=== PATIENT | female | born 1955 | race Caucasian/White ===

== ENCOUNTER 2020-01-14 06:47 | Outpatient (NON) | payer BC, SELFPAY ==
[2020-01-15 13:10] LABS: SARS-CoV-2 RNA PCR Negative
== END 2020-01-14 06:48 ==
PROVIDERS: PCP Registered Nurse; Visit Provider Registered Nurse
DX: Z20.828 Contact with and (suspected) exposure to other viral communicable diseases (principal); R05 Cough; J34.89 Other specified disorders of nose and nasal sinuses
CPT/HCPCS: 87635; C9803; U0003

== ENCOUNTER 2020-10-17 12:31 | Outpatient (CLI) | payer BC, SELFPAY ==
[2020-10-17 14:09] LABS: Hematocrit 42.6 % (37.0-47.0); Hemoglobin 14.5 g/dL (12.0-15.0); Mean Corpuscular Volume 91.2 fl (80-100); Mean Platelet Volume 10.2 fl (7.4-10.4); Platelet Count Result 215 k/mm3 (150-375); Red Blood Count 4.67 M/mm3 (4.2-5.4); Red Cell Distribution Width 12.4 % (11.5-14.5); White Blood Count 6.2 K/mm3 (4.5-10.0)
[2020-10-17 14:55] LABS: Erythrocyte Sedimentation Rate 14 mm/hr (0-20)
[2020-10-17 14:58] LABS: Free T4 Free Thyroxine 0.72 ng/mL (0.78-2.19)
[2020-10-17 15:07] LABS: Hepatitis B Surface Antigen Negative (Negative)
[2020-10-17 15:25] LABS: Alanine Aminotransferase 22 U/L (4-35); Albumin Level 4.7 g/dL (3.5-5.1); Alkaline Phosphatase 76 U/L (38-126); Anion Gap 6 mmol/L (8-16); Aspartate Amino Transferase 24 U/L (14-36); Bilirubin,Total 0.9 mg/dL (0.2-1.3); Blood Urea Nitrogen 19 mg/dL (7-17); CRP < 0.5 mg/dL (<1.0); Carbon Dioxide 27 mmol/L (22-30); Chloride 106 mmol/L (98-107); Creatine Kinase 23 U/L (30-135); Estimated Glomerular Filt Rate > 60; Glucose 87 mg/dL (65-110); Magnesium 1.8 mg/dL (1.6-2.3); Potassium 4.2 mmol/L (3.4-5.0); Sodium 139 mmol/L (137-145)
[2020-10-17 15:26] LABS: Rheumatoid Factor < 8.6 IU/ML (<12)
[2020-10-17 15:30] LABS: HIV 1/2 Ab P24 Ag Result Negative (Negative); Hepatitis B Surface Anti Res Positive; Hepatitis C Virus Antibody Negative (Negative)
[2020-10-17 16:06] LABS: Hemoglobin A1C 5.3 % (<5.7)
[2020-10-17 16:29] LABS: Folic Acid 8.8 ng/mL (2.76->20); Vitamin B12 > 1000.0 pg/mL (239-931)
[2020-10-19 20:10] LABS: SS-A <1.0; SS-B <1.0
[2020-10-20 10:23] LABS: Vitamin B1 11 nmol/L (8-30)
[2020-10-20 11:19] LABS: Vitamin B6 10.7 ng/mL (2.1-21.7)
[2020-10-20 14:09] LABS: Hepatitis B Core Ab Total Nonreactive (Nonreactive)
[2020-10-20 20:30] LABS: Hepatitis B DNA PCR <1.00 Log IU/mL; Hepatitis B DNA PCR <10 IU/mL
[2020-10-21 22:31] LABS: NIL 0.04 IU/mL; Quantiferon TB Plus, 1T NEGATIVE (NEGATIVE); TB1-NIL <0.00 IU/mL; TB2-NIL <0.00 IU/mL
[2020-10-22 03:15] LABS: Creatinine, Random Urine 202 mg/dL (20-275); Total Protein/Creatinine Ratio 69 mg/g creat (21-161)
[2020-10-22 19:26] LABS: Hepatitis C RNA, Quant PCR <15 IU/mL
[2020-10-22 22:06] LABS: Albumin 4.7 g/dL (3.8-4.8); Alpha 1 Globulin 0.3 g/dL (0.2-0.3); Alpha 2 Globulin 0.7 g/dL (0.5-0.9); Beta 1 Globulin 0.4 g/dL (0.4-0.6); Gamma Globulin 0.8 g/dL (0.8-1.7)
[2020-10-31 12:29] LABS: Reference Lab Test Name 14-3-3 eta Protein
== END 2020-10-17 12:32 | disposition home or self-care (01) ==
LOC: ANHLAB 12:41
PROVIDERS: PCP Registered Nurse; Visit Provider Internal Medicine Rheumatology
DX: M19.90 Unspecified osteoarthritis, unspecified site (principal); M35.00 Sjogren syndrome, unspecified; G62.9 Polyneuropathy, unspecified; R53.83 Other fatigue; E83.42 Hypomagnesemia; R73.09 Other abnormal glucose; E55.9 Vitamin D deficiency, unspecified; E53.8 Deficiency of other specified B group vitamins; D50.9 Iron deficiency anemia, unspecified
CPT/HCPCS: 36415; 80053; 82306; 82550; 82570; 82607; 82728; 82746; 83036; 83520; 83735; 84155; 84156; 84165; 84166; 84207; 84425; 84439; 84443; 84550; 85027; 85652; 86038; 86140; 86235; 86334; 86430; 86480; 86703; 86704; 86706; 86803; 87340; 87517; 87522; G0432

== ENCOUNTER 2020-10-19 11:41 | Outpatient (CLI) | payer BC, SELFPAY | END 2020-10-19 11:42 | disposition home or self-care (01) | LOC: ANHLAB 11:45 | PROVIDERS: PCP Registered Nurse; Visit Provider Internal Medicine Rheumatology | DX: G62.9 Polyneuropathy, unspecified (principal); R53.83 Other fatigue; M19.90 Unspecified osteoarthritis, unspecified site; E83.42 Hypomagnesemia; M79.10 Myalgia, unspecified site; Z13.1 Encounter for screening for diabetes mellitus | CPT/HCPCS: 86335 ==

== ENCOUNTER 2021-01-25 18:04 | Outpatient (CLI) | payer BC, SELFPAY ==
--- NOTE | ~2021-01-25 | XR_ITS ---
EXAMINATION: XR hand BI arthritis min 3V EXAM DATE: 01/25/2021 18:55 INDICATION: Multijoint pain. TECHNIQUE: Right hand frontal, lateral and oblique projections obtained and reviewed. Left hand fron kana, lateral and oblique projections obtained and reviewed. Catchers projection of both hands. There is no prior study for comparison. FINDINGS: Wrist findings reported on dedicated exams same date. Right hand: There is mild polyarticular distal interphalangeal primary osteoarthritis. There are no bony erosions identified. There are no acute fractures identified. Left hand: There is mild 1st interphalangeal, polyarticular distal interphalangeal primary osteoarthr itis. There are no bony erosions identified. There are no acute fractures identified. IMPRESSION: 1. Mild polyarticular osteoarthritis. Reviewed, dictated and finalized at location A. DATION MAKER
--- NOTE | ~2021-01-25 | XR_ITS ---
EXAMINATION: XR shoulder LT min 2V EXAM DATE: 01/25/2021 18:55 INDICATION: Multiple joint pain. TECHNIQUE: Left shoulder frontal, axillary projections. Correlation is made to contralateral shoulde r same date. FINDINGS: There is mild glenohumeral joint, mild acromioclavicular joint primary osteoarthritis. Ther e are no acute fractures or dislocations identified. There is no subcutaneous gas. The soft tissue is unremarkable. There are no radiopaque foreign bodies. IMPRESSION: Mild left shoulder osteoarthritis. Reviewed, dictated and finalized at location A. NING STILL OPERATOR
--- NOTE | ~2021-01-25 | XR_ITS ---
EXAMINATION: XR elbow LT 2V EXAM DATE: 01/25/2021 18:55 INDICATION: Multiple Joint Pain. TECHNIQUE: Frontal and lateral projections of the left elbow. Correlation is made to contralateral e lbow same date. FINDINGS: There is mild left elbow primary osteoarthritis. There are no acute fractures or dislocatio ns identified. There is no subcutaneous gas. The soft tissue is unremarkable. There are no radiop aque foreign bodies. IMPRESSION: Mild left elbow osteoarthritis. Reviewed, dictated and finalized at location A. EILLANCE SYSTEM MONITOR
--- NOTE | ~2021-01-25 | XR_ITS ---
EXAMINATION: XR shoulder RT min 2V EXAM DATE: 01/25/2021 18:55 INDICATION: Multiple Joint Pain TECHNIQUE: Right shoulder frontal, axillary projections.There is no prior study for comparison. FINDINGS: There is mild glenohumeral joint, mild acromioclavicular joint primary osteoarthritis. Ther e are no acute fractures or dislocations identified. There is no subcutaneous gas. The soft tissue is unremarkable. There are no radiopaque foreign bodies. IMPRESSION: Mild right shoulder osteoarthritis. Reviewed, dictated and finalized at location A. MACHINE OPERATOR
--- NOTE | ~2021-01-25 | XR_ITS ---
EXAMINATION: XR wrist RT 2V EXAM DATE: 01/25/2021 18:55 INDICATION: Multiple joint pain. TECHNIQUE: Frontal and lateral projections of the right wrist. Correlation is made to contralateral wrist same date. FINDINGS: There is right radial distal metaphyseal volar plate, supporting screws. The fracture this was healing has healed. There is an old ulnar styloid avulsion fracture. There is severe triscaphe a nd 1st carpometacarpal joint primary osteoarthritis. There are no bony erosions identified. There ar e no acute fractures identified. The soft tissue is unremarkable. IMPRESSION: Advanced right triscaphe, 1st carpometacarpal osteoarthritis. Reviewed, dictated and finalized at location A. ORATE LEGAL INTERN
--- NOTE | ~2021-01-25 | XR_ITS ---
EXAMINATION: XR ankle RT 2V EXAM DATE: 01/25/2021 18:55 INDICATION: Multiple Joint Pain . TECHNIQUE: Frontal and lateral projections of the right ankle. There is no prior study for comparis on. FINDINGS: Unremarkable ankle joint and mortise. There are no acute fractures or dislocations identif ied. There is no subcutaneous gas. The soft tissue is unremarkable. There are no radiopaque forei gn bodies. IMPRESSION: 1. Unremarkable XR ankle RT 2V exam. Reviewed, dictated and finalized at location A. CAL DIAGNOSTIC RADIOGRAPHER
--- NOTE | ~2021-01-25 | XR_ITS ---
EXAMINATION: XR hip BI wo pelvis EXAM DATE: 01/25/2021 18:55 INDICATION: Multiple joint pain. TECHNIQUE: Each hip imaged independently (separate right and also left hip) 'frog leg' and frontal p rojections for interpretation. There is no prior study for comparison. FINDINGS: No radiographic evidence of hip avascular necrosis. There is mild symmetric bilateral hip primary osteoarthritis. There are no acute fractures or dislocations identified. There is no subcut aneous gas. The soft tissue is unremarkable. There are no radiopaque foreign bodies. Advanced L4- 5 disc disease. IMPRESSION: Mild symmetric bilateral hip osteoarthritis. Reviewed, dictated and finalized at location A. ET CONSULTANT
--- NOTE | ~2021-01-25 | XR_ITS ---
EXAMINATION: XR knee RT 2V EXAM DATE: 01/25/2021 18:55 INDICATION: Multiple Joint Pain . TECHNIQUE: Frontal and lateral projections of the right knee. There is no prior study for compariso n. FINDINGS: Small right suprapatellar enthesopathy. Minimal patellofemoral and medial tibial femoral c ompartment primary osteoarthritis. There are no acute fractures or dislocations identified. There is no subcutaneous gas. The soft tissue is unremarkable. There are no radiopaque foreign bodies. IMPRESSION: Minimal right knee degenerative changes. Reviewed, dictated and finalized at location A. GRINDER FEEDER
--- NOTE | ~2021-01-25 | XR_ITS ---
EXAMINATION: XR ankle LT 2V EXAM DATE: 01/25/2021 18:55 INDICATION: Multijoint pain. TECHNIQUE: Frontal and lateral projections of the left ankle. There is no prior study for compariso n. FINDINGS: Unremarkable left ankle joint, mortise. There are no acute fractures or dislocations ident ified. There is no subcutaneous gas. The soft tissue is unremarkable. There are no radiopaque for eign bodies. IMPRESSION: 1. Unremarkable XR ankle LT 2V exam. Reviewed, dictated and finalized at location A. INE STONE POLISHER
--- NOTE | ~2021-01-25 | XR_ITS ---
EXAMINATION: XR elbow RT 2V EXAM DATE: 01/25/2021 18:55 INDICATION: Multiple Joint Pain . TECHNIQUE: Frontal and lateral projections of the right elbow. There is no prior study for comparis on. FINDINGS: There is mild right elbow primary osteoarthritis. There are no acute fractures or dislocati ons identified. There is no subcutaneous gas. The soft tissue is unremarkable. There are no radio paque foreign bodies. IMPRESSION: Mild right elbow osteoarthritis. Reviewed, dictated and finalized at location A. UET SERVER
--- NOTE | ~2021-01-25 | XR_ITS ---
EXAMINATION: XR knee LT 2V EXAM DATE: 01/25/2021 18:55 INDICATION: Multiple Joint Pain TECHNIQUE: Frontal and lateral projections of the left knee There is no prior study for comparison . FINDINGS: There are no acute left knee fractures or dislocations identified. There is no subcutaneou s gas. The soft tissue is unremarkable. There are no radiopaque foreign bodies. No joint effusion . IMPRESSION: 1. Unremarkable XR knee LT 2V exam. Reviewed, dictated and finalized at location A. ICAL RESEARCH TECHNICIAN
--- NOTE | ~2021-01-25 | XR_ITS ---
EXAMINATION: XR wrist LT 2V EXAM DATE: 01/25/2021 18:55 INDICATION: Multiple Joint Pain. TECHNIQUE: Frontal and lateral projections of the left wrist. There is no prior study for compariso n. FINDINGS: There is moderate to severe left 1st carpometacarpal joint, moderate triscaphe joint prima ry osteoarthritis. There are no bony erosions identified. There are no acute fractures or dislocation s identified. There is no subcutaneous gas. The soft tissue is unremarkable. There are no radiopa que foreign bodies. IMPRESSION: Left triscaphe, 1st carpometacarpal osteoarthritis. Reviewed, dictated and finalized at location A. WRITER
== END 2021-01-25 18:05 | disposition home or self-care (01) ==
LOC: ANHIMG 18:07
PROVIDERS: PCP Registered Nurse; Visit Provider Internal Medicine Rheumatology
DX: M19.021 Primary osteoarthritis, right elbow (principal); M19.022 Primary osteoarthritis, left elbow; M16.0 Bilateral primary osteoarthritis of hip; M19.011 Primary osteoarthritis, right shoulder; M19.012 Primary osteoarthritis, left shoulder; M17.11 Unilateral primary osteoarthritis, right knee; M19.041 Primary osteoarthritis, right hand; M19.042 Primary osteoarthritis, left hand; M19.031 Primary osteoarthritis, right wrist; M19.032 Primary osteoarthritis, left wrist
CPT/HCPCS: 73030; 73070; 73100; 73130; 73521; 73560; 73600

== ENCOUNTER 2021-03-22 14:44 | Outpatient (RCR) | payer BC, SELFPAY ==
[2021-03-22] MEDS: FAMOTIDINE 20 MG TABLET PO (15:16)
[2021-03-22] MEDS: diphenhydrAMINE HCl CAP 25 MG CAPSULE PO (15:16)
[2021-03-22] MEDS: ACETAMINOPHEN 325 MG TABLET 650 MG PO (15:16)
[2021-03-22 15:19] VITALS: BP 129/84; PULSE 71; RESP 20; TEMP 36.6; O2SAT 99
[2021-03-22 16:20] VITALS: BP 126/84
== END 2021-03-22 17:00 ==
LOC: AMCINF 14:44
PROVIDERS: PCP Registered Nurse; Visit Provider Internal Medicine Hematology & Oncology
DX: U07.1 COVID-19 (principal); G61.81 Chronic inflammatory demyelinating polyneuritis
CPT/HCPCS: A9270; M0243; Q0244

== ENCOUNTER → 2022-10-16 13:46 | Outpatient (CLI) | payer OTHER, SELFPAY ==
--- NOTE | ~2022-10-16 | MM_ITS ---
EXAMINATION: MM scrn eunice implant BI w mohan HISTORY: Screening mammogram TECHNIQUE: Craniocaudal and mediolateral oblique 3-D tomosynthesis images with implant displacement a nd synthetic 2-D images were generated. Craniocaudal and mediolateral oblique views of the breasts wi thout implant displacement were obtained using full field digital mammography. CAD analysis was submi tted and interpreted. COMPARISON: No prior mammogram is available for comparison at this institution. BREAST PARENCHYMAL COMPOSITION: There are scattered areas of fibroglandular density. FINDINGS: 2 biopsy markers are noted on the right; history of 2 prior benign right breast biopsies. Status post bilateral augmentation mammoplasty. There are asymmetric opacities in the central left breast 4 cm deep to the nipple on craniocaudal vie w and posterior lower left breast on MLO view. Otherwise there is no evidence of suspicious mass, calcification, or architectural distortion to sugg est malignancy in either breast. There has been no other suspicious interval change. IMPRESSION: 1. Left breast mammographic asymmetric densities 2. Diagnostic left mammogram and left breast ultrasound examination are recommended BI-RADS Category 0: Incomplete: Needs additional imaging evaluation. Reviewed, dictated and finalized at location A. IMPRESSION: 1. Left breast mammographic asymmetric densities 2. Diagnostic left mammogram and left breast ultrasound examination are recomme nded BI-RADS Category 0: Incomplete: Needs additional imaging evaluation.
== END ==
PROVIDERS: PCP Registered Nurse; Visit Provider Nurse Practitioner Obstetrics & Gynecology
DX: Z12.31 Encounter for screening mammogram for malignant neoplasm of breast (principal); N64.89 Other specified disorders of breast
CPT/HCPCS: 77063; 77067

== ENCOUNTER → 2022-11-19 09:50 | Outpatient (CLI) | payer OTHER, SELFPAY ==
--- NOTE | ~2022-11-19 | MMUS_ITS ---
EXAMINATION: MM diag eunice implant LT w mohan, US breast LT complete HISTORY: Left breast mammographic asymmetric density reported on 10/17/1999 2020 screening mammogram TECHNIQUE: Additional 3-D tomosynthesis images of the left breast were performed and synthetic 2-D im ages were generated. CAD analysis was submitted and interpreted. High resolution complete left breast ultrasound examination including all 4 quadrants and subareolar area was performed. COMPARISON: 11/02/2022 bilateral implant screening mammogram FINDINGS: MAMMOGRAPHIC FINDINGS: No suspicious mass, architectural distortion, malignant calcification, skin thickening or retraction of the left breast is detected. Status post left augmentation mammoplasty. ULTRASOUND: No suspicious mass or shadowing or vascularity is detected. 2.2 x 6.8 x 5.4 mm cyst is noted of 4:00 subareolar area. Mildly prominent subareolar ducts are noted . IMPRESSION: 1. Benign findings; no evidence of malignancy 2. Routine annual mammographic screening is recommended BI-RADS Category 2: Benign finding(s). Reviewed, dictated and finalized at location A. IMPRESSION: 1. Benign findings; no evidence of malignancy 2. Routine annual mammographic screening is recommended BI-RADS Category 2: Benign finding(s).
--- NOTE | ~2022-11-19 | DEXA_ITS ---
Bone Density Report Name: MELVA DE LA O Age: 67 Sex: Female Ethnicity: White Date of : 1955 Indication: postmenopausal; screening for osteoporosis; height loss; history of glucocorticoids; prior fracture; rheumatoid arthritis; Referring Provider: Deirdre, Radha Study: Bone densitometry was performed. Exam Date: November 19, 2022 Accession number: [id number] Bone Density: Region BMD T-score Z-score Classification AP Spine (L1, L2, L3) 0.849 -1.5 0.3 Osteopenia Femoral Neck (Left) 0.695 -1.4 0.2 Osteopenia Total Hip (Left) 0.724 -1.8 -0.5 Osteopenia Femoral Neck (Right) 0.729 -1.1 0.5 Osteopenia Total Hip (Right) 0.719 -1.8 -0.5 Osteopenia Total Hip Mean 0.722 -1.8 -0.5 Osteopenia World Health Organization criteria for BMD impression classify patients as: Normal (T-score at or above -1.0), Osteopenia (T-score between -1.0 and -2.5), or Osteoporosis (T-score at or below -2.5). 10-year Fracture Risk(1): Major Osteoporotic Fracture 27% Hip Fracture 4.1% Reported Risk Factors: [place] (), Neck BMD=0.695, BMI=22.7, previous fracture, glucocorticoids, rheumatoid arthritis (1) FRAX(R) Version 3.08. Fracture probability calculated for an untreated patient. Fracture probability may be lower if the patient has received treatment. Clinical Information Provided by Patient: Has had a low trauma fracture Has taken Glucocorticoids Has rheumatoid arthritis Has used the following medications: Calcium Patient maximum height was 71.5 Menopause Age: 53 No regular weight bearing exercise Drinks caffeinated beverages Onset of menses at age 15 Number of children 1 Impression: The patient has low bone mass, based on the Left Total Hip T-score. The patient has an estimated ten-year risk of hip fracture of 4.1% and an estimated ten-year risk of major fracture of 27%, based on the WHO FRAX algorithm. The patient has risk factors, including: previous fracture, history of glucocorticoid therapy. Discussion: BONE DENSITY IS LOW AT ONE OR MORE SKELETAL SITES. THE PATIENT'S BMD AND CLINICAL RISK FACTORS CONTRIBUTE TO THIS PATIENT'S HIGH RISK OF FRACTURE. This patient's lowest T-score is low at one or more skeletal sites. It meets the World Health Organization's (WHO) criteria for ?low bone mass? (T-score between -1.0 and -2.5). The patient's 10-year risk of hip fracture and 10 year risk of a major osteoporotic fracture as calculated by FRAX exceeds the threshold where pharmacological therapy is recommended by the National Osteoporosis Foundation (NOF). However, all treatment decisions require clinical judgment and consideration of individual patient factors, including patient preferences, comorbidities, previous drug use, risk factors not captured in the FRAX model (e.g., frailty, falls, vitamin
== END ==
PROVIDERS: PCP Registered Nurse; Referring Provider Nurse Practitioner Obstetrics & Gynecology; Visit Provider Obstetrics & Gynecology
DX: R92.8 Other abnormal and inconclusive findings on diagnostic imaging of breast (principal); Z78.0 Asymptomatic menopausal state; M85.88 Other specified disorders of bone density and structure, other site; M85.852 Other specified disorders of bone density and structure, left thigh; M85.851 Other specified disorders of bone density and structure, right thigh
CPT/HCPCS: 76641; 77061; 77065; 77080; G0279

== ENCOUNTER 2024-02-26 10:22 | Outpatient (CLI) | payer OTHER, SELFPAY ==
--- NOTE | ~2024-02-26 | MM_ITS ---
EXAMINATION: MM scrn eunice implant BI w mohan HISTORY: Screening mammogram TECHNIQUE: Craniocaudal and mediolateral oblique 3-D tomosynthesis images with implant displacement a nd synthetic 2-D images were generated. Craniocaudal and mediolateral oblique views of the breasts wi thout implant displacement were obtained using full field digital mammography. CAD analysis was submi tted and interpreted. COMPARISON: Comparison to multiple prior studies sequentially, with oldest reviewed study dated 08/25. BREAST PARENCHYMAL COMPOSITION: Not dense: There are scattered areas of fibroglandular density. FINDINGS: There is a new focal mass in the periareolar location of the right breast. The left breast is stable without evidence for malignancy. IMPRESSION: 1. New small 5 mm right breast mass in the periareolar location. 2. Additional mammographic views and possible breast ultrasound are recommended. BI-RADS Category 0: Incomplete: Needs additional imaging evaluation. Reviewed, dictated and finalized at location B. T CUSTODIAN IMPRESSION: 1. New small 5 mm right breast mass in the periareolar location. 2. Additional mammographic views and possible breast ultrasound are recommended . BI-RADS Category 0: Incomplete: Needs additional imaging evaluation.
== END 2024-02-26 10:23 | disposition home or self-care (01) ==
LOC: MICIMG 10:23
PROVIDERS: PCP Registered Nurse; Visit Provider Registered Nurse
DX: Z12.31 Encounter for screening mammogram for malignant neoplasm of breast (principal); R92.8 Other abnormal and inconclusive findings on diagnostic imaging of breast
CPT/HCPCS: 77063; 77067

== ENCOUNTER 2024-03-29 07:50 | Outpatient (CLI) | payer OTHER, SELFPAY ==
--- NOTE | ~2024-03-29 | MMUS_ITS ---
EXAMINATION: MM diag eunice implant RT w mohan, US breast RT limited HISTORY: 5 mm periareolar mass TECHNIQUE: Additional 3-D tomosynthesis images of the right breast were performed and synthetic 2-D i mages were generated. CAD analysis was submitted and interpreted. High resolution limited right breas t ultrasound was performed. COMPARISON: 02/26/2024 BREAST PARENCHYMAL COMPOSITION:Not Dense. There are scattered areas of fibroglandular density. FINDINGS: MAMMOGRAPHIC FINDINGS: Spot compression views demonstrate a persistent 5 mm mass at the inner right periareolar region. ULTRASOUND: Sonographic images demonstrate a 3 mm hypoechoic structure in the right subareolar region, with proba stephy correlates with the sonographic finding. IMPRESSION: 3 mm hypoechoic structure right subareolar region, probably benign. Six-month follow-up mammogram an d ultrasound recommended to reassess. BI-RADS category 3, probably benign findings. Reviewed, dictated and finalized at [facility]. LE CLEANER IMPRESSION: 3 mm hypoechoic structure right subareolar region, probably benign. Six-month follow-up mammogram and ultrasound recommended to reassess. BI-RADS category 3, probably benign findings.
== END 2024-03-29 07:51 | disposition home or self-care (01) ==
LOC: MICIMG 07:51
PROVIDERS: PCP Registered Nurse; Visit Provider Registered Nurse
DX: R92.8 Other abnormal and inconclusive findings on diagnostic imaging of breast (principal)
CPT/HCPCS: 76642; 77061; 77065; G0279

== ENCOUNTER 2024-10-07 07:32 | Outpatient (CLI) | payer OTHER, SELFPAY ==
--- NOTE | ~2024-10-07 | MMUS_ITS ---
EXAMINATION: MM diag eunice implant RT w mohan, US breast RT limited INDICATION: 69-year old female; BI-RADS 3, short-term follow-up on probably benign right subareolar h ypoechoic mass. COMPARISON: 03/29/2024 through 10/16/2022. TECHNIQUE: Digital breast tomosynthesis CC and MLO views of the RIGHT breast and True lateral and spo t compression of the RIGHT breast were obtained with computer-aided detection to assist in interpreta tion of the study. A targeted ultrasound of the right breast was completed. MAMMOGRAM FINDINGS: There are scattered areas of fibroglandular density. There are no suspicious masses, calcifications, architectural distortion or any other abnormality in either breast. Previously reported probably benign right periareolar mass has resolved in the interva l. RIGHT BREAST ULTRASOUND FINDINGS: Previously reported hypoechoic structure in the right subareolar region is no longer present. IMPRESSION: Benign mammogram and ultrasound with interval resolution of the study reported probably benign right subareolar finding. RECOMMENDATION: Annual bilateral screening mammography due in 6 months. BI-RADS 2, BENIGN Reviewed, dictated and finalized at location [] IMPRESSION: Benign mammogram and ultrasound with interval resolution of the study reported probably benign right subareolar finding. RECOMMENDATION: Annual bilateral screening mammography due in 6 months. BI-RADS 2, BENIGN
== END 2024-10-07 07:33 | disposition home or self-care (01) ==
LOC: MICIMG 07:32
PROVIDERS: PCP Registered Nurse; Visit Provider Registered Nurse
DX: R92.8 Other abnormal and inconclusive findings on diagnostic imaging of breast (principal)
CPT/HCPCS: 76642; 77061; 77065; G0279